=== PATIENT | male | born 1985 | race Caucasian/White ===

== ENCOUNTER 2016-10-26 01:06 | Inpatient (IN) | payer OTHER ==
--- NOTE | ~2016-10-26 | PN ---
Unit #: [id number] #: [id number] Patient: LITO MULLINS [id number] [facility] [address] [place] [address] [id number] MR#: [id number] NAME: LITO MULLINS ROOM: [facility] Age: 31 Sex: M Admission Date: 10/26/2016 : 1985 Attending Physician: Ariadna Kumar M.D. Admitting Physician: Ariadna Kumar M.D. Primary Care Physician: Primary Care Physician Margot ALMONTE NOTES DATE 10/28/2016 DISCUSSION Mr. Mullins is a 31-year-old white male who was seen today and chart was reviewed and case was discussed with the staff. He has been anxious, withdrawn and rather seclusive to himself, although he reports feeling somewhat better. He has been taking medications and tolerating them fairly well with no reported side effects. MENTAL STATUS EXAMINATION Young white male who was casually dressed with fair personal hygiene and appears to be in no acute distress or discomfort. He was awake and alert on interaction with intact orientation. His mood was anxious with congruent affect. His speech is slow and goal-directed. He denies any suicidal or homicidal ideations and also denies any auditory or visual hallucinations. His insight and judgement remains slightly impaired. TREATMENT PLAN 1. We will continue on his current medications and treatment protocol. Will monitor his response to the medications and make further adjustments as needed. 2. Will continue to follow up. Dictated by... Elizabeth Jessica/kimime TD: 10/28/2016 19:43 JOB #: [id number] Unit #: [id number] #: [id number] Patient: LITO MULLINS PROGRESS NOTES Page 1 of 1 X Ariadna Kumar MD PROGRESS NOTE
--- NOTE | ~2016-10-26 | PN ---
Unit #: [id number] #: [id number] Patient: LITO MULLINS [id number] [facility] [address] [place] [address] [id number] I MR#: [id number] NAME: LITO MULLINS ROOM: 71 Age: 31 Sex: M Admission Date: 10/26/2016 : 1985 Attending Physician: Ariadna Kumar M.D. Admitting Physician: Ariadna Kumar M.D. Primary Care Physician: Primary Care Physician Margot ALMONTE NOTES DATE 10/31/2016 DISCUSSION Mr. Mullins is a 31-year-old white male who was seen today and chart was reviewed and case was discussed with the staff. He has been anxious, withdrawn and rather seclusive to himself. Meanwhile, he has been taking medications and tolerating them fairly well with no reported side effects. MENTAL STATUS EXAMINATION Young white male who was casually dressed with fair personal hygiene and appears to be in no acute distress or discomfort. He was awake and alert on interaction with intact orientation. His mood was anxious with congruent affect. His speech is slow and goal-directed. He denies any suicidal or homicidal ideation and also denies any auditory or visual hallucinations. His insight and judgement remains slightly impaired. TREATMENT PLAN 1. Will continue on his current medications and treatment protocol. Will monitor his response to the medications and make further adjustments as needed. 2. Will continue to follow up. Dictated by... Elizabeth Jessica/kimmie TD: 11/01/2016 16:03 JOB #: [id number] Unit #: [id number] #: [id number] Patient: LITO MULLINS PROGRESS NOTES Page 1 of 1 X Ariadna Kumar MD PROGRESS NOTE
--- NOTE | ~2016-10-26 | DS ---
Unit #: [id number] #: [id number] Patient: LITO MULLINS [id number] [facility] [address] [place] [address] [id number] I MR#: [id number] NAME: LITO MULLINS ROOM: [facility] Age: 31 Sex: M Admission Date: 10/26/2016 : 1985 Discharge Date: 11/01/2016 Attending Physician: rAiadna Kumar M.D. DISCHARGE SUMMARY IDENTIFYING DATA Mr. Mullins is a 31-year-old single white male, who is a resident of [place], [place], and was transferred to us from [facility] in [place], [place]. DISCHARGE DIAGNOSES Psychiatric: Alcohol dependence, moderate and acute withdrawals; alcohol-induced mood disorder. Medical: None. Stressors: Moderate psychosocial stressors. HISTORY OF PRESENT ILLNESS Please see initial psychiatric evaluation for details. PAST PSYCHIATRIC HISTORY Please see initial psychiatric evaluation for details. PAST MEDICAL HISTORY Please see initial psychiatric evaluation for details. HOSPITAL COURSE The patient was admitted to the adult chemical dependency and psychiatric unit at [facility] and was oriented to the hospital environment. Routine p.r.n. medications were initiated, and he was started back on his home medications and medications were adjusted and he was closely monitored. He was taking the medications regularly and was tolerating them fairly well and was able to come out of the detox without any complications and was willing to continue treatment on an outpatient basis and as such, it was decided that he will be discharged home and will continue treatment on an outpatient basis. DISCHARGE MEDICATIONS None. DISCHARGE CONDITION Stable. PROGNOSIS Fair. Dictated by... Ariadna Kumar M.D. Unit #: [id number] #: [id number] Patient: LITO MULLINS IAA/modl TD: 11/01/2016 07:12 JOB #: [id number] DISCHARGE SUMMARY Page 1 of 1 X Ariadna Kumar MD X DISCHARGE SUMMARY
--- NOTE | ~2016-10-26 | PN ---
Unit #: [id number] #: [id number] Patient: LITO MULLINS [id number] [facility] [address] [place] [address] [id number] MR#: [id number] NAME: LITO MULLINS ROOM: [facility] Age: 31 Sex: M Admission Date: 10/26/2016 : 1985 Attending Physician: Ariadna Kumar M.D. Admitting Physician: Ariadna Kumar M.D. Primary Care Physician: Primary Care Physician Margot HOWELL PROGRESS NOTES DATE 10/29/2016 DISCUSSION Mr. Mullins is a 31-year-old, white male who was seen today and chart was reviewed and case was discussed with the staff. He has been anxious, withdrawn rather seclusive to himself. Meanwhile, he has been cooperative with treatment recommendations and has been taking medications and tolerating them fairly well with no reported side effects. MENTAL STATUS EXAM Young white male who was casually dressed with fair personal hygiene, appears to be in no acute distress or discomfort. He was awake and alert on interaction with intact orientation. His mood was anxious with congruent affect. He denies any suicidal or homicidal ideation. His insight and judgement remains slightly impaired. TREATMENT PLAN 1. We will continue him on his current treatment protocol. We will monitor his response and make further adjustments as needed. 2. We will continue to follow up. Dictated by... Elizabeth Jessica/juliana TD: 10/31/2016 00:22 JOB #: [id number] Unit #: [id number] #: [id number] Patient: LITO MULLINS PROGRESS NOTES Page 1 of 1 X Ariadna Kumar MD X PROGRESS NOTE
--- NOTE | ~2016-10-26 | PA ---
Unit #: [id number] #: [id number] Patient: LITO MULLINS [id number] [facility] [address] [place] [address] [id number] I MR#: [id number] NAME: LITO MULLINS ROOM: 86 Age: 31 Sex: M Admission Date: 10/26/2016 : 1985 Date of Assessment: 10/26/2016 Attending Physician: Ariadna Kumar M.D. Admitting Physician: Ariadna Kumar M.D. PSYCHIATRIC ASSESSMENT DATE OF SERVICE 10/26/2016 IDENTIFYING DATA Mr. Mullins is a 31-year-old single white male, who is a resident of [place], [place] and was transferred to us from [facility] in [place], [place], where he presented with a blood alcohol level of 0.126. CHIEF COMPLAINT "I want to get detox." HISTORY OF PRESENT ILLNESS Mr. Mullins is a 31-year-old white male who was taken to the emergency room at [facility] in [place] [facility] and hitting his head. He reports he had attempted to enter the [facility] to get something to drink, but when he stepped inside, he fell to the ground and stated that they came outside and provided him with food and water, but that he was still unable to walk more than 10 steps without getting lightheaded and reports that he has not had alcohol since 2:00 in the morning and was withdrawing, particularly related to the amount that he drinks. He stated that he drinks half to one gallon of vodka on a daily basis and he is in [place] due to leaving [place] and attempting to get to [place], but found out that he was [place] the [place] interstate and asked to be let out of the car and currently he is homeless and has no income, and upon presentation to the emergency room, he had a blood alcohol level of 0.126 with a CIWA score of 25 and a COWS score of 26 indicating significant withdrawal from both alcohol and opioids. He also was seen to be anxious, restless, and reports being homeless and poor social support system and describing increasing depression and anxiety, but denies any suicidal ideations, intent, or plan. He was medically cleared and was transferred to us. SUBSTANCE ABUSE HISTORY The patient reports an extensive history of substance abuse and dependence including alcohol, cannabis, cocaine, acid, opioids and benzodiazepines, and currently he reports that he has been drinking up to a gallon of vodka on a daily basis and has been using 2.5 g of heroin on a daily basis as well. PAST PSYCHIATRIC HISTORY The patient has had a history of inpatient chemical dependency treatment in the past. Review of the medical records indicate currently he is not Unit #: [id number] #: [id number] Patient: LITO MULLINS active in any treatment program, he is not seeing a psychiatrist, and he is not taking any psychotropic medication. PAST MEDICAL HISTORY Hepatitis C. ALLERGIES No known medication allergies. PERSONAL AND SOCIAL HISTORY A 31-year-old white male who reports that he is single, unemployed and homeless and has poor social support system. MENTAL STATUS EXAMINATION Young white male who was casually dressed with a fair personal hygiene and appears to be in no acute distress or discomfort. He was awake and alert on interaction with intact orientation to time, place, and person. His mood was anxious and depressed with a congruent affect. His speech is slow and goal directed. His thought processes were disorganized with some looseness of associations. He denies any suicidal or homicidal ideations, and also denies any auditory or visual hallucinations. His insight and judgment remain significantly impaired. DIAGNOSTIC IMPRESSION Psychiatric: Alcohol dependence, moderate, in acute withdrawals. Opioid dependence, moderate, in acute withdrawals. Alcohol-induced mood disorder. Medical: None. Stressors: Moderate psychosocial stressors. TREATMENT PLAN 1. The patient has presented with a history of mood disorder and has been decompensating and will need inpatient hospitalization for detoxification, safety and stabilization. We will start him back on his home medication. We will adjust the medication and monitor response. 2. Supportive therapy was provided to the patient. 3. Safe, structured, and nourishing environment will be provided. ESTIMATED LENGTH OF STAY 5 to 7 days. ABILITY TO HELP SELF Limited. WILLINGNESS TO HELP SELF The patient appears to be willing to help self. STRENGTHS 1. Communicative. 2. Cooperative. PROBLEMS 1. Chronic dysphoric symptoms. 2. Chronic chemical dependency. 3. Poor social support system. DISCHARGE CRITERIA Unit #: [id number] #: [id number] Patient: LITO MULLINS This will be contingent upon the patient's ability to go through detox without having any significant withdrawal symptoms as well as his ability to stay safe to himself, particularly after discharge from the hospital. Dictated by... Elizabeth Jessica/armando TD: 10/26/2016 07:11 JOB #: [id number] PSYCHIATRIC ASSESSMENT Page 1 of 1 X Ariadna Kumar MD X PSYCHIATRIC ASSESSMENT
--- NOTE | ~2016-10-26 | PN ---
Unit #: [id number] #: [id number] Patient: LITO MULLINS [id number] [facility] [address] [place] [address] [id number] I MR#: [id number] NAME: LITO MULLINS ROOM: [facility] Age: 31 Sex: M Admission Date: 10/26/2016 : 1985 Attending Physician: Ariadna Kumar M.D. Admitting Physician: Elizabeth Jessica PROGRESS NOTES DATE OF SERVICE: 10/27/2016 SUBJECTIVE Mr. Mullins is a 31-year-old white male, who was seen today and chart was reviewed and the case was discussed with the staff. He has been anxious, withdrawn, and rather seclusive to himself. Meanwhile, he has been cooperative with the treatment recommendations and has been taking the medications and tolerating them fairly well with no reported side effects. MENTAL STATUS EXAMINATION Young white male, who was casually dressed with fair personal hygiene and appears to be in slight distress and discomfort. He was awake and alert with impaired attention and concentration. His mood was anxious with a congruent affect. He denies any suicidal or homicidal ideation. His insight and judgment remain significantly impaired. TREATMENT PLAN 1. We will continue him on his current medications and treatment protocol. We will monitor his response to the medications and make further adjustments as needed. 2. We will continue to follow up. Dictated by... Elizabeth Jessica/armando TD: 10/27/2016 21:14 JOB #: [id number] [facility] PROGRESS NOTES Page 1 of 1 X Ariadna Kumar MD PROGRESS NOTE
--- NOTE | ~2016-10-26 | PN ---
Unit #: [id number] #: [id number] Patient: LITO MULLINS [id number] [facility] [address] [place] [address] [id number] I MR#: [id number] NAME: LITO MULLINS ROOM: [facility] Age: 31 Sex: M Admission Date: 10/26/2016 : 1985 Attending Physician: Ariadna Kumar M.D. Admitting Physician: Ariadna Kumar M.D. Primary Care Physician: Primary Care Physician Margot ALMONTE NOTES DATE 10/30/2016 DISCUSSION Mr. Mullins is a 31-year-old white male who was seen today and chart was reviewed and case was discussed with the staff. He has been anxious, withdrawn rather seclusive to himself. Meanwhile, he has been cooperative with the treatment recommendations. He has been taking the medication and tolerating them fairly well with no reported side effects. MENTAL STATUS EXAM Young white male who was casually dressed with fair personal hygiene, appears to be in no acute distress or discomfort. He was awake and alert on interaction with intact orientation. His mood was anxious with congruent affect. His speech was slow and goal directed. He denies any suicidal or homicidal ideation. Also, denies any auditory or visual hallucinations. His insight and judgement remains slightly impaired. TREATMENT PLAN 1. We will continue him on his current medications and treatment protocol. We will monitor his response and make further adjustments as needed. 2. We will continue to follow up. Dictated by... Elizabeth Jessica/juliana TD: 10/31/2016 20:51 JOB #: [id number] Unit #: [id number] #: [id number] Patient: LITO MULLINS PROGRESS NOTES Page 1 of 1 X Ariadna Kumar MD PROGRESS NOTE
--- NOTE | ~2016-10-26 | HP ---
Unit #: [id number] #: [id number] Patient: LITO KING [id number] [place] [address] [id number] I MR#: [id number] NAME: LITO KING ROOM: 86 Age: 31 Sex: M Admission Date: 10/26/2016 : 1985 Attending Physician: Ariadna Kumar M.D. Admitting Physician: Ariadna Kumar M.D. Primary Care Physician: Primary Care Physician No HISTORY AND PHYSICAL HISTORY OF PRESENT ILLNESS Lito is a 31 year old admitted to [facility] because of his abuse of alcohol. He is detoxing. PAST MEDICAL HISTORY 1. Long history of alcohol abuse. 2. History of illicit substance abuse to include IV drugs. He denies anything in years. 3. Hepatitis C. PAST SURGICAL HISTORY Nothing reported. ALLERGIES No known drug allergies. SOCIAL HISTORY Smokes less than 1/2 pack per day. Drinks 1/2 gallon of vodka on a daily basis and denies illicit drug use, although he does have a history of IV drug use. FAMILY HISTORY Medically noncontributory. REVIEW OF SYSTEMS CONSTITUTIONAL: No fever or chills. HEENT: Denies any sore throat, ear pain or runny nose. CARDIOVASCULAR: Denies chest pain, irregular heart rhythm or palpitations. CHEST: Denies shortness of breath or cough. No hemoptysis. GASTROINTESTINAL: Denies nausea, vomiting, diarrhea or chronic constipation. ENDOCRINE: Denies history of increased thirst or urination. No recent significant weight loss or gain. GENITOURINARY: Denies dysuria, frequency, or hematuria. SKIN: Denies any rashes. HEMATOLOGIC: Denies history of increased bleeding or bruising. MUSCULOSKELETAL: Denies any hot, swollen joints. No generalized muscle pain. NEUROLOGIC: Denies problems with vision or speech. No frequent, severe headaches. No numbness, tingling or weakness in any extremities. Denies loss of bladder or bowel control. CURRENT MEDICATIONS Unit #: [id number] #: [id number] Patient: LITO KING Detox protocol. PHYSICAL EXAMINATION GENERAL: Alert, well-nourished, in no apparent distress. VITAL SIGNS: Blood pressure 128/84, heart rate 120, respirations 16, temperature 98.6. WEIGHT: 175. HEIGHT: 6 feet 0 inches. SKIN: Warm and dry without rash or lesion. HEENT: Normocephalic. TMs not viewed. Oral and nasal passages clear. Conjunctivae clear. PERRLA. EOMs intact. NECK: Supple without lymphadenopathy or thyromegaly. HEART: Regular rate and rhythm without murmur. LUNGS: Clear. ABDOMEN: Soft, nontender. : Not done. EXTREMITIES: No evidence of cyanosis, clubbing or edema. Moves all without focal deficit. NEUROLOGICAL: Grossly within normal limits. Cranial Nerves: II: Visual michel are intact. III, IV AND : Extraocular movements are intact. Pupils are equal, round and reactive to light. V: Facial sensation is grossly normal. VII: Facial movements and expression are normal. VIII: Auditory acuity grossly intact. IX, X: Uvula is midline. Phonation is normal. XI: Patient shrugs shoulders and turns head normally. XII: Tongue protrudes in the midline. Sensory and Motor Function: Sensory and motor sensation is grossly normal. Motor: moves all extremities well. Coordination: Gait is normal. Deep Tendon Reflexes: Intact. IMPRESSION Psychiatric admission. RECOMMENDATIONS PSYCHIATRIC: Per psychiatrist. MEDICAL: See no contraindications to participate in facility's activities. MEDICAL PROGNOSIS Good. MEDICAL CONDITION Stable. Dictated by... Jaqueline Simon PRubiARubi-Corine. for Elizabeth Esposito/kimmie TD: 10/26/2016 19:33 JOB #: [id number] Unit #: [id number] #: [id number] Patient: LITO KING HISTORY AND PHYSICAL Page 1 of 1 X Jaqueline Simon HISTORY AND PHYSICAL
== END 2016-11-01 10:05 | DRG 897 ==
LOC: P1E 01:06
PROC: HZ2ZZZZ Detoxification Services for Substance Abuse Treatment (ICD-10-PCS; principal; 2016-10-26)
DX: F10.239 Alcohol dependence with withdrawal, unspecified (principal); F11.23 Opioid dependence with withdrawal; F10.24 Alcohol dependence with alcohol-induced mood disorder; F17.210 Nicotine dependence, cigarettes, uncomplicated; B19.20 Unspecified viral hepatitis C without hepatic coma
CPT/HCPCS: 86592; J2550

== ENCOUNTER 2016-11-22 22:21 | Inpatient (IN) | payer OTHER ==
--- NOTE | ~2016-11-22 | HP ---
Unit #: [id number] #: [id number] Patient: LITO KING [id number] [facility] [address] [place] [address] [id number] I MR#: [id number] NAME: LITO KING ROOM: P181 Age: 31 Sex: M Admission Date: 11/22/2016 : 1985 Attending Physician: Ariadna Kumar M.D. Admitting Physician: Ariadna Kumar M.D. Primary Care Physician: Primary Care Physician No HISTORY AND PHYSICAL Lito is a 31 year old admitted to [facility] because of his continued abuse of alcohol. Patient was seen and H and P dated 10/26/16 was reviewed. This is current. No changes. Please see H and P dated 10/26/16. Dictated by... Jaqueline Simon P.A.-C. for Elizabeth Esposito/kimmie TD: 11/23/2016 19:56 JOB #: [id number] HISTORY AND PHYSICAL Page 1 of 1 X Jaqueline Simon HISTORY AND PHYSICAL
--- NOTE | ~2016-11-22 | CO ---
Unit #: [id number] #: [id number] Patient: LITO KING [id number] [place] [address] [id number] I MR#: [id number] NAME: LITO KING ROOM: [facility] Age: 31 Sex: M Admission Date: 11/22/2016 : 1985 Attending Physician: Ariadna Kumar M.D. Primary Care Physician: Primary Care Physician No Consultation Date: 11/24/2016 CONSULTATION REPORT АНДРЕЙ Vieira is a 31-year-old who complains of green discharge from his penis and painful urination. PLAN Rocephin 250 mg IM now and azithromycin 1 g p.o. now. Dictated by... Jaqueline Simon PRubiARubi-Corine. for Elizabeth Esposito/armando TD: 12/03/2016 01:00 JOB #: [id number] CONSULTATION REPORT Page 1 of 1 X Jaqueline Simon CONSULTATION REPORT
--- NOTE | ~2016-11-22 | PN ---
Unit #: [id number] #: [id number] Patient: LITO MULLINS [id number] [facility] [address] [place] [address] [id number] I MR#: [id number] NAME: LITO MULLINS ROOM: [facility] Age: 31 Sex: M Admission Date: 11/22/2016 : 1985 Attending Physician: Ariadna Kumar M.D. Admitting Physician: Ariadna Kumar M.D. Primary Care Physician: Primary Care Physician Margot ALMONTE NOTES DATE November 24, 2016 DISCUSSION Mr. Mullins is a 31-year-old white male, who was seen today and chart was reviewed and the case was discussed with the staff. He has been anxious, withdrawn, but has not shown any agitation, irritability, or behavioral problems, and has been cooperative with the treatment recommendations and he has been taking the medications and tolerating them fairly well with no reported side effects. MENTAL STATUS EXAMINATION Young white male, who was casually dressed with fair personal hygiene and appears to be in no acute distress or discomfort. He was awake and alert on interaction with intact orientation. His mood is anxious with a congruent affect. His speech is slow and goal-directed. He denies any suicidal or homicidal ideations, and also denies any auditory or visual hallucinations. His insight and judgment remain slightly impaired. TREATMENT PLAN 1. We will continue him on his current medications and treatment protocol, and will monitor his response to the medications, and make further adjustments as needed. 2. We will continue to followup. Dictated by... Elizabeth Jessica/kari TD: 11/24/2016 09:20 JOB #: [id number] Unit #: [id number] #: [id number] Patient: LITO MULLINS PROGRESS NOTES Page 1 of 1 X Ariadna Kumar MD PROGRESS NOTE
--- NOTE | ~2016-11-22 | DS ---
Unit #: [id number] #: [id number] Patient: LITO MULLINS [id number] [facility] [address] [place] [address] [id number] I MR#: [id number] NAME: LITO MULLINS ROOM: [facility] Age: 31 Sex: M Admission Date: 11/22/2016 : 1985 Discharge Date: 11/25/2016 Attending Physician: Ariadna Kumar M.D. Primary Care Physician: Primary Care Physician No DISCHARGE SUMMARY IDENTIFYING DATA Mr. Mullins is a 31-year-old white male who was self-referred to the hospital. DISCHARGE DIAGNOSES Psychiatric: Alcohol dependence, moderate and acute withdrawal; alcohol-induced mood disorder. Medical: None. Stressors: Moderate psychosocial stressors. HISTORY OF PRESENT ILLNESS Please see initial psychiatric evaluation for details. PAST PSYCHIATRIC HISTORY Please see initial psychiatric evaluation for details. PAST MEDICAL HISTORY Please see initial psychiatric evaluation for details. HOSPITAL COURSE The patient was admitted to the adult chemical dependency unit at [facility] and was oriented to the hospital environment. Routine p.r.n. medications were initiated, and he was started on the detox protocol, and was closely monitored. He was taking the medications regularly and was tolerating them fairly well, and was able to come out of the detox without any complications and wanting to go home and was denying any suicidal ideations, intent, and plan and as such, it was decided that he will be discharged home and will continue treatment on an outpatient basis. DISCHARGE MEDICATIONS None. DISCHARGE CONDITION Stable. PROGNOSIS Guarded. Dictated by... Ariadna Kumar M.D. Unit #: [id number] #: [id number] Patient: LITO MULLINS IAA/modl TD: 12/21/2016 12:41 JOB #: [id number] DISCHARGE SUMMARY Page 1 of 1 X Ariadna Kumar MD X DISCHARGE SUMMARY
--- NOTE | ~2016-11-22 | PA ---
Unit #: [id number] #: [id number] Patient: [facility]ULLINS [id number] [facility] [address] [place] [address] [id number] MR#: [id number] NAME: LITO MULLINS ROOM: P181 Age: 31 Sex: M Admission Date: 11/22/2016 : 1985 Date of Assessment: 11/23/2016 Attending Physician: Ariadna Kumar M.D. Admitting Physician: Ariadna Kumar M.D. Primary Care Physician: Primary Care Physician No PSYCHIATRIC ASSESSMENT DATE OF SERVICE 11/23/2016. IDENTIFYING DATA Mr. Mullins is a 31-year-old white male who is a resident of [place], [place] and was self-referred to the hospital on a voluntary basis. CHIEF COMPLAINT "I need help with my drug abuse." HISTORY OF PRESENT ILLNESS Mr. Mullins is a 31-year-old single white male with a long history of substance abuse and dependence, who was self-referred to the hospital and is known to me from previous encounter, carries a diagnosis of alcohol dependence and reports that he started drinking again and has been drinking up to a gallon of vodka a day and does report increasing depression, anxiety, irritability, restlessness, and having significant consequences because of his addiction and inability to function and has not been able to perform activities of daily living and states that he has been clean from all substances for over 2 years and he now only drinks alcohol and he has also completed Suboxone program and wants to get detox from alcohol. He does report significant withdrawal symptoms including abdominal cramps, depressed mood and history of delirium tremens, headache, nervousness, poor sleep, poor appetite, poor energy level, restlessness, and as such, recommendation for inpatient level of care for safety and stabilization was made, and the patient was stepped up to the inpatient unit. SUBSTANCE ABUSE HISTORY The patient has an extensive history of substance abuse and dependence including alcohol, cannabis, cocaine, acid, opioids and benzodiazepines, and reports that currently alcohol has been his drug of choice and he has been drinking up to a gallon on a daily basis and has been drinking since he was 15 years old. PAST PSYCHIATRIC HISTORY The patient has had a history of [facility], though currently he is not active in any treatment program, he is not seeing a psychiatrist, and he is not taking any psychotropic medications. PAST MEDICAL HISTORY No acute or chronic medical illnesses. Unit #: [id number] #: [id number] Patient: LITO MULLINS ALLERGIES No known medication allergies. CURRENT MEDICATIONS None. PERSONAL AND SOCIAL HISTORY A 31-year-old white male who reports that he is single, unemployed, and lives with friends and family members and has poor social support system. MENTAL STATUS EXAMINATION Young white male who was casually dressed with a fair personal hygiene and appears to be in no acute distress or discomfort. He was awake and alert on interaction with intact orientation to time, place, and person. His mood was anxious and depressed with a congruent affect. His speech is slow and goal directed. He denies any suicidal or homicidal ideations and also denies any auditory or visual hallucinations. His insight and judgment remain significantly impaired. DIAGNOSTIC IMPRESSION Psychiatric: Alcohol dependence, moderate, in acute withdrawals. Alcohol-induced mood disorder. Medical: None. Stressors: Moderate psychosocial stressors. TREATMENT PLAN 1. The patient has presented with a history of mood disorder and has been decompensating and will need inpatient hospitalization for detoxification, safety, and stabilization. We will start him on alcohol detox protocol. We will closely monitor for any worsening withdrawal symptoms. 2. Supportive therapy was provided to the patient. 3. Safe, structured, and nourishing environment will be provided. ESTIMATED LENGTH OF STAY 5 to 7 days, ABILITY TO HELP SELF Limited. WILLINGNESS TO HELP SELF The patient appears to be willing to help self. STRENGTHS 1. Communicative. 2. Cooperative. PROBLEMS 1. Chronic dysphoric symptoms. 2. Chronic chemical dependency. 3. Poor social support system. DISCHARGE CRITERIA This will be contingent upon the patient's ability to go through detox without having any significant withdrawal symptoms as well as his ability to stay safe to himself, particularly after discharge from the hospital. Unit #: [id number] #: [id number] Patient: LITO MULLINS Dictated by..Elizabeth Abad/armando TD: 11/23/2016 06:49 JOB #: [id number] PSYCHIATRIC ASSESSMENT Page 1 of 1 X Ariadna Kumar MD PSYCHIATRIC ASSESSMENT
[2016-11-23 09:41] LABS: BASOPHIL# 0.1 X10e3 (0-0.3); EOSINOPHIL# 0.1 X10e3 (0-0.7); EOSINOPHIL% 1.1 % (0.0-7.0); HEMATOCRIT 26.8 % (38.0-50.0); HEMOGLOBIN 8.8 gm/dL (13.0-16.0); LYMPHOCYTE# 2.3 X10e3 (1.0-3.5); LYMPHOCYTE% 21.8 % (17.0-45.0); MEAN CORPUSCULAR HEMOGLOBIN 26.8 PG (28-34); MEAN CORPUSCULAR HGB CONC 32.7 g/dL (30-36); MONOCYTE# 0.8 X10e3 (0-1.0); MONOCYTE% 7.5 % (3.0-12.0); NEUTROPHIL# 7.1 X10e3 (1.5-7.1); NEUTROPHIL% 68.6 % (40-75); PLATELET COUNT 257 X10e3 (140-420); RED BLOOD COUNT 3.27 X10e (3.90-5.60); RED CELL DISTRIBUTION WIDTH 18.3 % (11.0-15.5); WHITE BLOOD COUNT 10.4 X10e3 (4.0-10.5)
[2016-11-23 09:43] LABS: DIFF IND NO
[2016-11-23 10:11] LABS: ALBUMIN SERUM 3.4 g/dL (3.5-5.0); BILIRUBIN,TOTAL 0.5 mg/dL (0.2-2.0); CREATININE SERUM 0.8 mg/dL (0.6-1.4); GLOM FILT RATE Estimated 118.2 mL/min (>60); POTASSIUM 3.2 mmol/L (3.5-5.1); PROTEIN TOTAL SERUM 6.7 g/dL (6.0-8.3)
[2016-11-24 09:31] LABS: URINE APPEARANCE CLOUDY; URINE BILIRUBIN NEG (NEG); URINE BLOOD NEG (NEG); URINE COLOR DK YELLOW; URINE GLUCOSE NEG (NEG); URINE KETONE NEG (NEG); URINE LEUKOCYTE ESTERASE 3+ (NEG); URINE NITRATE NEG (NEG); URINE PROTEIN 3+ (NEG); URINE SPECIFIC GRAVITY 1.022 (1.003-1.035)
[2016-11-24 09:32] LABS: URINE BACTERIA AUWI NEG (NEGATIVE); URINE SQUAMOUS EPITHELIAL CELL NONE SEEN /[HPF]
[2016-11-24 10:08] LABS: UWBCS1 AUWI 100-200 (0-5)
[2016-11-24 10:09] LABS: URINE MUCUS PRESENT
[2016-11-24 10:34] LABS: AMPHETAMINE NEG (NEG); BARBITURATES NEG (NEG); BENZODIAZEPINES POS (NEG); COCAINE NEG (NEG); MARIJUANA NEG (NEG); OPIATES NEG (NEG); TRICYCLIC ANTIDEPRESSANTS NEG (NEG); U METHADONE NEG (NEG)
== END 2016-11-25 09:50 | disposition home or self-care (01) | DRG 897 ==
LOC: P1E 22:21
PROVIDERS: Psychiatry & Neurology Psychiatry
PROC: HZ2ZZZZ Detoxification Services for Substance Abuse Treatment (ICD-10-PCS; principal; 2016-11-22)
DX: F10.239 Alcohol dependence with withdrawal, unspecified (principal); F10.24 Alcohol dependence with alcohol-induced mood disorder; B19.20 Unspecified viral hepatitis C without hepatic coma; F17.210 Nicotine dependence, cigarettes, uncomplicated
CPT/HCPCS: 80053; 80307; 81003; 84132; 85025; J0696; J2550